=== PATIENT | female | born 1940 | race Two or more races ===

== ENCOUNTER 2017-08-04 15:38 | Inpatient (IN) | payer MEDICARE, BC ==
[~2017-08-04] VITALS: Ht 157.5 cm; Wt 59.0 kg
--- NOTE | 2017-08-04 16:05 | NUR ---
PATIENT TO ED FOR EVALUATION DT POSSIBLE DEPRESSION, PATIENT REPORTED SI WITH PLAN OF JUMPING FROM A BUILDING, PATIENT DENIES HALLUCINATION. AFEBRILE. VSS
[2017-08-04 16:06] LABS: BASOPHILS % (AUTO) 0.4 % (0.0-2.0); EOSINOPHILS # (AUTO) 0.6 /CMM (0.0-0.7); EOSINOPHILS % (AUTO) 6.1 % (0.0-6.0); HEMATOCRIT 36 % (33-45); HEMOGLOBIN 11.9 g/dL (11.5-14.8); LYMPHOCYTES # (AUTO) 2.6 /CMM (0.8-4.8); LYMPHOCYTES % (AUTO) 26.5 % (20.0-44.0); MEAN CORPUSCULAR HEMOGLOBIN 28 PG (26.0-33.0); MEAN CORPUSCULAR HGB CONC 33 g/dl (31.0-36.0); MEAN CORPUSCULAR VOLUME 85 fL (82-100); MONOCYTES # (AUTO) 0.6 /CMM (0.1-1.30); MONOCYTES % (AUTO) 6.5 % (2.0-12.0); NEUTROPHILS # (AUTO) 5.8 /CMM (1.8-8.9); NEUTROPHILS % (AUTO) 60.5 % (43.0-81.0); PLATELET COUNT (AUTO) 162 /CMM (150-450); RDW COEFFICIENT OF VARIATION 12.8 (11.5-15.0); RED BLOOD CELL COUNT(AUTO) 4.24 MIL/uL (4.0-5.2); WHITE BLOOD COUNT (AUTO) 9.6 K/uL (4.3-11.0)
[2017-08-04 16:14] LABS: CALCIUM, SERUM 8.8 mg/dL (8.5-10.1); CARBON DIOXIDE 29 mmol/L (21-32); CHLORIDE 100 mmol/L (98-107); CREATININE 0.8 mg/dL (0.6-1.3); GLUCOSE 109 mg/dL (74-106); POTASSIUM 3.7 mmol/L (3.5-5.1); SODIUM SERUM 134 mmol/L (136-145); UREA NITROGEN, BLOOD 14 mg/dL (7-18)
[2017-08-04 16:21] LABS: ACETAMINOPHEN 0 ug/ml (10-30); ALANINE AMINOTRANSFERASE 21 U/L (12-78); ALBUMIN 3.9 g/dL (3.4-5.0); ALCOHOL, BLOOD < 3 mg/dL (0-0); ALKALINE PHOSPHATASE 57 U/L (46-116); ASPARTATE AMINOTRANSFERASE 21 U/L (15-37); BILIRUBIN,DIRECT 0.1 mg/dL (0.0-0.2); BILIRUBIN,TOTAL 0.5 mg/dL (0.2-1.0); SALICYLATE 0.9 mg/dL (2.8-20.0); TOTAL PROTEIN, SERUM 7.2 g/dL (6.4-8.2)
--- NOTE | 2017-08-04 17:23 | NUR ---
CALLED [employer] ETA 1 HR .
[2017-08-04] MEDS ORDERED: METO-302 PO (17:27)
[2017-08-04] MEDS ORDERED: ALPR0.5T8 PO (17:27)
[2017-08-04] MEDS ORDERED: PANT40TA4 PO (17:27)
[2017-08-04] MEDS ORDERED: MONT10TA22 PO (17:27)
[2017-08-04] MEDS ORDERED: PRAV80TA21 PO (17:27)
[2017-08-04 17:45] LABS: APPEARANCE,URINE CLEAR (CLEAR); BILIRUBIN,URINE NEGATIVE (NEGATIVE); BLOOD, URINE NEGATIVE Ery/uL (NEGATIVE); COLOR,URINE YELLOW (YELLOW); KETONES,URINE NEGATIVE (NEGATIVE); LEUKOCYTE ESTERASE ,URINE NEGATIVE (NEGATIVE); NITRITE, URINE NEGATIVE (NEGATIVE); PROTEIN,URINE NEGATIVE (NEGATIVE); UGLUCOSE NEGATIVE (NEGATIVE); UROBILINOGEN,URINE 0.2 EU/dL (0.2)
--- NOTE | 2017-08-04 18:46 | NUR ---
REPORT GIVEN TO AUTUMN VALENCIA FOR LISA
[2017-08-04 20:10] VITALS: BP 135/75
--- NOTE | 2017-08-04 20:10 | NUR ---
GPS ADMISSION NOTE, RECEIVED PATIENT FROM [facility]. 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 PATIENT ADMITTED ON A 5150 HOLD FOR DTS. PER HOLD PATIENT STATED, " I'M DEPRESSED AND I WANT TO , I JUST WANT TO GO TO THE [place] AND JUMP, I WILL INSTANTLY ". PATIENT VERBALIZING FRUSTRATION FOR TAKING CARE OF HER SICK . PATIENT UNABLE TO CONTRACT FOR SAFETY AT THIS TIME. THE 5150 WAS REVIEWED AND THE DOCUMENTATION IN THE 5150 HOLD APPEARS TO REFLECT THE PRESENTATION OF THE PATIENT. UPON FACE TO FACE ASSESSMENT PATIENT IS CURRENTLY LYING IN BED AWAKE, HAS NO S/S OR COMPLAINTS OF PAIN. PATIENT IS DISPLAYING NO S/S OF APPARENT DISTRESS. PATIENT BREATHING IS UNLABORED WITH EQUAL RISE AND FALL OF THE CHEST. PATIENT IS ALERT AND ORIENTATED X 4 ON ROOM AIR. PATIENT ASSISTED WITH TURING AND REPOSITIONING Q2HR AND PRN FOR COMFORT AND CIRCULATION. PATIENT HAS NO NEEDS AT THIS TIME. PATIENT IS NOTED TO BEING WITHDRAWN, DEPRESSED, DISHEVELED, CALM, AND COOPERATIVE. PATIENT DENIES SUICIDE IDEATIONS AND HOMICIDAL IDEATIONS AT THIS TIME. PATIENT IS UNDER THE PSYCHIATRIC CARE OF DR. HOOD AND THE MEDICAL CARE OF DR BLUM. PATIENT BELONGINGS WERE INVENTORIED AND CHECKED FOR CONTRABAND. ALL CONTRABAND REMOVED AND STORED IN PATIENT HALLWAY LOCKER. PATIENT ADVANCED DIRECTIVES PREFERENCE, IMMUNIZATIONS QUESTIONER, NECESSARY PAPERWORK, AND SKIN ASSESSMENT COMPLETED. PATIENT ORIENTATED TO ROOM, FLOOR, AND STAFF WITH ALL QUESTIONS ANSWERED. PATIENT EDUCATED ON THE USE OF THE CALL [place]. PATIENT BED SIDE RAILS ARE UP X 2 FOR SAFETY. PATIENT BED IS LOCKED, LOW AND I WILL CONTINUE TO MONITOR THIS PATIENT Q 15 MIN WITH THE HELP OF STAFF TO MAINTAIN SAFETY.
[2017-08-04 20:12] VITALS: BP 135/75
[2017-08-04] MEDS ORDERED: TEMAZEPAM 7.5 MG CAPSULE PO PRN (20:30)
[2017-08-04] MEDS ORDERED: ACETAMINOPHEN 325 MG TABLET PO PRN (20:30)
[2017-08-04] MEDS ORDERED: MAG HYDROX/AL HYDROX/SIMETH 30 ML UDC PO PRN (20:30)
[2017-08-04] MEDS ORDERED: clonazePAM 0.5 MG TABLET PO PRN (20:30)
[2017-08-04] MEDS ORDERED: MAGNESIUM HYDROXIDE 30 ML UDC PO PRN (20:30)
[2017-08-04] MEDS ORDERED: ASPI81TA2 PO (21:56)
[2017-08-04] MEDS ORDERED: BUDE0.5A4 IH (21:58)
[2017-08-04] MEDS ORDERED: PANTOPRAZOLE 40 MG TABLET.DR PO SCH ×2 (22:00)
[2017-08-04] MEDS ORDERED: MONTELUKAST SODIUM (10MG) 10 MG TABLET PO SCH (22:00)
[2017-08-04] MEDS ORDERED: ACET1TAB23 PO (22:00)
[2017-08-04] MEDS ORDERED: FLUT1BLS IH (22:01)
[2017-08-04] MEDS ORDERED: MAGN400T6 PO (22:03)
[2017-08-04] MEDS ORDERED: LEVO125T PO (22:04)
[2017-08-04] MEDS ORDERED: METH500T4 PO (22:07)
[2017-08-04] MEDS: MONTELUKAST SODIUM (10MG) 10 MG TABLET PO SCH (22:24)
--- NOTE | 2017-08-04 22:29 | NUR ---
GPS RN NOTE, PATIENT IS HAS A COMPLAINT OF OF FEELING ANXIOUS AND IS REQUESTING KLONOPIN AT THIS TIME. PATIENT VITAL SIGNS ARE STABLE. GAVE KLONOPIN 0.25 MG PO Q4HRS PRN ORDERED. WILL REASSESS FOR ANXIETY AND I WILL CONTINUE TO MONITOR THIS PATIENT.
--- NOTE | 2017-08-04 22:33 | NUR ---
GPS RN NOTE, PATIENT HAS ASTHMA AND NEEDS A MED RECON. PAGED [facility] AND INFORMED DR RENEE ANN OF MY FINDINGS. DR RENEE ANN ORDER ALBUTEROL 2.5MG / 0.5ML VIA NEB Q6HR PRN AND STATED SHE WILL COMPLETE PATIENT MED RECON WHEN SHE HAS TIME. ALL ORDERS NOTED AND CARRIED OUT. WILL CONTINUE TO MONITOR THIS PATIENT.
[2017-08-04] MEDS ORDERED: ALBUTEROL FS 2.5 MG/0.5 ML VIAL.NEB NEB PRN (23:00)
[2017-08-05] MEDS ORDERED: RANO500T3 PO (05:46)
--- NOTE | 2017-08-05 05:59 | NUR ---
GPS RN NOTE, PATIENT NEEDS MED RECON. PAGED [facility] AND INFORMED DR RENEE ANN OF MY FINDINGS. DR RENEE ANN ORDERED LEVOTHYROXIN SODIUM 125MCG BEFORE BREAKFAST AND ASPIRIN 81MG PO DAILY AND ASKED TO HAVE THE AM DOCTORFINISH MED RECON. WILL ENDORSE TO AM SHIFT NURSE. ALL ORDERS NOTED AND CARRIED OUT. WILL CONTINUE TO MONITOR THIS PATIENT.
[2017-08-05] MEDS ORDERED: FEXO180T94 PO (06:20)
[2017-08-05 07:49] LABS: CREATININE 0.7 mg/dL (0.6-1.3)
[2017-08-05 07:58] LABS: CHOLESTEROL 164 mg/dL (<200); HDL CHOLESTEROL 76 mg/dL (40-60); LDL 82 mg/dL (0-99); TRIGLYCERIDES 36 mg/dL (30-150)
[2017-08-05 08:00] VITALS: BP 140/67
[2017-08-05] MEDS: LEVOTHYROXINE SODIUM 125 MCG TABLET PO SCH (09:00)
[2017-08-05] MEDS: ASPIRIN 81 MG TAB.CHEW PO SCH (09:00)
[2017-08-05] MEDS: PANTOPRAZOLE 40 MG TABLET.DR PO SCH (09:00)
[2017-08-05] MEDS ORDERED: METOPROLOL SUCCINATE 25 MG TAB.SR.24H PO SCH (09:00)
[2017-08-05] MEDS: METOPROLOL SUCCINATE 25 MG TAB.SR.24H PO SCH (09:01)
--- NOTE | 2017-08-05 09:04 | NUR ---
[id number]: GAVE TYLENOL 650 MG PO DUE TO GENERALIZED PAIN 5/10 UPON PT REQUEST AND WILL CONTINUE TO MONITOR FOR EFFECTIVENESS OF MEDICATION.
[2017-08-05] MEDS ORDERED: LEVOTHYROXINE SODIUM 125 MCG TABLET PO SCH (11:00)
[2017-08-05] MEDS ORDERED: CELLULOSE,OXIDIZED 1 PKT EACH MC SCH (11:00)
[2017-08-05] MEDS ORDERED: ASPIRIN 81 MG TAB.CHEW PO SCH (11:00)
--- NOTE | 2017-08-05 11:30 | NUR ---
PT ASSESSED, NO RESP DISTRESS NOTED, CLEAR DIMINISHED BREATH SOUNDS NOTED W/ STABLE VITAL SIGNS. PT CLAIMS TO BE BREATHING "FINE", WILL CALL FOR PRN HHN [place] IF IN DISTRESS.
[2017-08-05] MEDS: MAGNESIUM OXIDE 400 MG TABLET PO SCH (11:44)
[2017-08-05] MEDS ORDERED: ACETAMINOPHEN W/ CODEINE#3 1 EA TABLET PO SCH (12:00)
[2017-08-05] MEDS ORDERED: BENEFIBER 4 GM 1 EA PACKET PO SCH (12:00)
[2017-08-05] MEDS: FLUTICASONE/VILANTEROL 1 EACH BLST.W.DEV IH SCH (12:21)
[2017-08-05] MEDS: SERTRALINE HCL 25 MG TABLET PO SCH (13:23)
[2017-08-05 15:39] VITALS: BP 134/81
--- NOTE | 2017-08-05 16:09 | NUR ---
Initial Discharge Note: Patient resides at [address] [place], [place] [id number]. Patient lives there with her , whom she takes care of and her youngest daughter. Patient wishes to return upon discharge and has been cleared by the psychiatrist. SW will make arrangements for patient to return home.
[2017-08-05] MEDS: FEXOFENADINE HCL (60 MG) 60 MG TABLET PO SCH (17:01)
[2017-08-05 20:38] VITALS: BP 115/59
[2017-08-05] MEDS: MONTELUKAST SODIUM (10MG) 10 MG TABLET PO SCH (21:03)
[2017-08-05] MEDS ORDERED: ATORVASTATIN 10 MG TABLET PO SCH (22:00)
[2017-08-06 08:00] VITALS: BP 122/66
--- NOTE | 2017-08-06 08:40 | NUR ---
RN-CO: Patient is alert and oriented x 4, denied suicidal and homicidal ideation. Denied auditory and visual hallucination. Calm and cooperative to care. Dr Tsai ordered to discontinue hold and discharge patient home today.
[2017-08-06] MEDS: PANTOPRAZOLE 40 MG TABLET.DR PO SCH (09:09)
[2017-08-06 09:10] VITALS: BP 122/66
[2017-08-06] MEDS: ASPIRIN 81 MG TAB.CHEW PO SCH (09:10)
[2017-08-06] MEDS: MAGNESIUM OXIDE 400 MG TABLET PO SCH (09:10)
[2017-08-06] MEDS: LEVOTHYROXINE SODIUM 125 MCG TABLET PO SCH (09:10)
[2017-08-06] MEDS: FEXOFENADINE HCL (60 MG) 60 MG TABLET PO SCH (09:10)
[2017-08-06] MEDS: METOPROLOL SUCCINATE 25 MG TAB.SR.24H PO SCH (09:10)
[2017-08-06] MEDS: FLUTICASONE/VILANTEROL 1 EACH BLST.W.DEV IH SCH (09:14)
[2017-08-06] MEDS: SERTRALINE HCL 25 MG TABLET PO SCH (12:39)
--- NOTE | 2017-08-06 13:01 | NUR ---
Discharge Note: Patient will be discharged back home to [address] [place] [address] via taxi. Patients family has been notified [son Mort [phone]]. Patient will be transported via taxi, which patient is in agreement with and wanted to do. Upon discharge, patient appears alert and oriented x4. Patient denies suicidal and homicidal ideation. Patient denies visual and auditory hallucinations. Patient will be seen by her drop man, Dr. Bedolla [address], [place], [place] [phone] on Friday, August 19 at noon. Patient was also referred to a psychiatrist, [address], [place] [address] [phone]. flow worker spoke with Dr. Tsai who stated that the patient will make her appointment upon discharge. Patient was provided with Dr. Matos business card and contact information. Patient was encouraged to discuss her use of prescription medication with Dr. Tsai. Patient is not a smoker and does not have issues with alcohol abuse.
--- NOTE | 2017-08-06 14:23 | NUR ---
RN-NOTES PATIENT WAS DISCHARGE TO HOME TODAY. DR. LUJAN COVERING FOR DR. HOOD TODAY AND DR. BLUM AWARE AND AGREES OF PATIENT DISCHARGE. ALL DISCHARGE MEDICATIONS WAS REVIEWED WITH THE PATIENT WITH UNDERSTANDING. RX WAS GIVEN TO THE PATIENT.PATIENT DID NOT VERBALIZE SI/HI,DENIES VISUAL/AUDITORY HALLUCINATIONS AT THE TIME OF DISCHARGE. CALLED PT. SON JELANI ([phone]) AND MADE AWARE OF THE PATIENT DISCHARGE.PATIENT LEFT THE UNIT ALERT ORIENTED X4 ,AMBULATORY IN STABLE CONDITION WITH ALL HER BELONGINGS. ASSISTED BY ONE HEAD OF ICT STAFF IN THE LOBBY FOR SAFETY. OPHTHALMIC PATHOLOGIST BY A TAXI.
== END 2017-08-06 14:15 | disposition home or self-care (01) | DRG 885 ==
LOC: ER 15:41 → GPS 17:50 → ER 18:47 → GPS 20:05
PROVIDERS: ADMIT Psychiatry & Neurology Psychiatry; ATTEND Psychiatry & Neurology Psychiatry
DX: F33.2 Major depressive disorder, recurrent severe without psychotic features (principal); I48.0 Paroxysmal atrial fibrillation; R45.851 Suicidal ideations; E03.9 Hypothyroidism, unspecified; F41.9 Anxiety disorder, unspecified; E78.5 Hyperlipidemia, unspecified; I10 Essential (primary) hypertension; I25.10 Atherosclerotic heart disease of native coronary artery without angina pectoris; J45.909 Unspecified asthma, uncomplicated; K21.9 Gastro-esophageal reflux disease without esophagitis; Z79.899 Other long term (current) drug therapy; F29 Unspecified psychosis not due to a substance or known physiological condition; Z73.6 Limitation of activities due to disability
CPT/HCPCS: 36415; 80048-TC; 80061-TC; 80076-TC; 80305; 81000-TC; 82565-TC; 85025-TC; 87081-TC; A4606; C1763; G0480; Z7610